=== PATIENT | female | born 1980 | race Two or more races ===

== ENCOUNTER 2016-09-14 05:28 | Day surgery (SDC) | payer OTHER ==
[~2016-09-14] VITALS: Ht 165.1 cm; Wt 66.7 kg
[2016-09-14] MEDS ORDERED: Ketamine 10 mg/mL 20 mL Inj ONE (05:29)
[2016-09-14] MEDS ORDERED: Propofol 10,000 mCg/mL 20 mL Inj ONE (05:29)
[2016-09-14] MEDS ORDERED: CeFAZolin Inj 2 gm / 50mL D5W IV ONE (05:48)
[2016-09-14] MEDS: Lactated Ringer's 1,000 ML IV SCH ×3 (05:53→09:57)
[2016-09-14 05:54] VITALS: BP 112/73; PULSE 66; O2SAT 99
[2016-09-14] MEDS ORDERED: CeFAZolin 2 Gm/50 mL D5W IV Premix IV ONE (06:00)
[2016-09-14] MEDS ORDERED: Bupivacaine-MPF 0.5% 30 mL Inj INFILTRATE ONE (07:30)
[2016-09-14] MEDS ORDERED: Lactated Ringer's 500 ML IV PRN (07:48)
[2016-09-14] MEDS ORDERED: Lactated Ringer's 1,000 ML IV SCH (07:48)
--- NOTE | 2016-09-14 07:48 | PCM.HPANE ---
Patient Data Date of Service: September 14, 2016 Surgeon Admitting Provider: Attending Provider:Irineo Vera MD Primary Care Physician:Rufino Webber MD Other Provider:Soumya Kennedy Anesthesia Reason for Visit Right Lower Leg Foreign Body Ht/WT & BMI Height (Feet): 5 Height (Inches): 5 Weight (Kilograms): 66.7 Body Mass Index 24.00 Allergies Coded Allergies: No Known Allergies (Unverified , 09/09/16) Past Anesthesia History Anesthesia History: Denies:: Abnormal Airway, Anesthesia Reactions, Difficult Intubation, Fam Anesthesia Reaction Diabetes History Hx Diabetes?: No MRSA MRSA: No Medications Hypertension Medication: No Home Meds Incl Beta Shruthi: No No Active Prescriptions or Reported Meds History History of ENT Problems?: No HEENT History: Denies:: Abnormal Airway Cataracts Difficult Intubation Dysphagia Glaucoma Hearing Problem Sinus Problem TMJ Denture Type: None Teeth Condition: Within Normal Limits Hx of Heart Problems?: No Cardiovascular History: Denies:: AICD Abdominal Aortic Aneurism Atrial Fibrillation Cardiac Surgery Chest Pain Congestive Heart Failure Heart Murmur Hypertension Irregular Heartbeat Pacemaker Peripheral Vascular Rheumatic Fever Thrombophlebitis Hx of Respiratory Problem?: No Respiratory History: Denies:: Asthma COPD Emphysema Hemoptysis Oxygen Administration Pneumonia Tuberculosis Use of C-PAP Machine Use of Inhalers / NEBS Hx Neurologic Problems?: No Neurological History: Denies:: Alzheimer's Disease CVA Dizziness Headaches Multiple Sclerosis Parkinson's Disease Seizures TIA Hx of GI Problems?: No Hx of Problems?: No Genitourinary History: Denies:: Kidney Stones Urinary Tract Infection HX of Peritoneal Dialysis: No Female Hx: Denies:: Currently (tubal ligation) Problems with Breasts? Skin History: Positive for:: History Skin Disorders? (open wound right lower leg ) Hx Musculoskeletal Problems?: Yes Musculoskeletal History: Positive for:: Musculoskeletal Trauma (right lower leg wound- metal foreign) Denies:: Fibromyalgia Osteoarthritis Rheumatoid Arthritis Systemic Lupus Hx of Psycho/Social Problems?: No Psycho Social History: Denies:: Anxiety Hx Depression Hx Surgeries?: Yes (tubal ) Hx Any Other Health Problems?: Yes Other History: Denies:: Cancer Thyroid Disease History Blood Transfusions: Positive for:: Accept Blood Products? Denies:: Blood Transfusions Hx Diabetes: No Hx Alcohol Use: NoHx Substance Use: NoHave You Smoked inLast 12 mo: No Stop/Bang Treated for Sleep Apnea?: No Do You Have a CPAP Machine?: No S-Snoring: Do You Snore Loudly: No T-Tired: feel tired, fatigued: No O-Obsered: Observed not breath: No P-Blood Pressure: treated: No B- Body Mass Index > 35 kg/m2: No A- Age over 50: No N- Neck Large Circumference: No G- Gender Male: No ANITHA Total Score: 0 ANITHA Risk Assessment: Low Risk, <3 Yes Risk Assessment Category Category 1A: Patient has history of documented sleep apnea, and HAS NOT received any narcotic, sedative or anesthesia administration during this stay. Category 1B: Patient has history of documented sleep apnea, and HAS received any narcotic , sedative or anesthesia administration during this stay Category 2: Patient has SUSPECTED Obstructive Sleep Apnea, and HAS received any narcotic , sedative or anesthesia administration during this stay. Category 3: Patient has SUSPECTED Obstructive Sleep Apnea and HAS NOT received narcotic, sedative or anesthesia administration during this stay. Category 4: Outpatient in Procedural Areas with known sleep apnea or who screen positive for High Risk via the STOP/BANG questionnaire. Exam Exam Vital Signs Vital Signs Date Time Temp Pulse Resp B/P Pulse Ox O2 Delivery O2 Flow Rate FiO2 09/14/16 05:54 36.4 66 112/73 99 Room Air General Appearance: Alert, Oriented X3 HEENT/AIRWAY: MP 1 Lungs: Clear to Auscultation Heart: Exam Unremarkable Meds/Labs/Diagnostics Admission Meds Current Medications Lactated Ringer's 1,000 ml @ 120 mls/hr Q8H20M IV Last administered on 07:32; Start 09/14/16 at 05:00; Stop 09/14/16 at 13:19 Cefazolin Sodium/ Dextrose/Premix (Ancef Inj/IV Premix) 50 ml @ 100 mls/hr PREOP ONCE IV Last administered on 09/14/16 07:31; Start 09/14/16 at 06:00; Stop 09/14/16 at 06:29; Status DC Bupivacaine HCl (Sensorcaine-MPF 0.5% Inj) 30 ml STK-MED ONCE INFILTRATE Last administered on 09/14/16 07:30; Start 09/14/16 at 07:30; Stop 09/14/16 at 07:31; Status DC Plan Impression Patient chart reviewed, patient interviewed and anesthestic plan with risks, benefits, and alternatives discussed, and informed consent obtained. ASA Physical Status: ASA1 Normal Healthy Anesthetic Plan: MAC Bene/Risks/Altern/Consents: Yes HP Complete Prior to Induction: Yes Yaw Jaime MD September 14, 2016 07:47
[2016-09-14] MEDS ORDERED: HYDROmorphone 1 mg/mL Inj IVPUSH PRN (07:50)
[2016-09-14] MEDS ORDERED: EPHEDrine Sulfate 50 mg/mL Inj IVPUSH PRN (07:50)
[2016-09-14] MEDS ORDERED: Ondansetron 2 mg/mL 2 mL Inj IVPUSH PRN (07:50)
[2016-09-14] MEDS ORDERED: fentaNYL-PF 50 mCg/mL 2 mL Inj IVPUSH PRN (07:50)
[2016-09-14] MEDS ORDERED: Phenylephrine 10,000 mCg/mL Inj IVPUSH PRN (07:50)
[2016-09-14] MEDS ORDERED: Dexamethasone 4 mg/mL Inj IVPUSH PRN (07:50)
[2016-09-14] MEDS ORDERED: MetoCLOpramide 5 mg/mL 2 mL Inj IVPUSH PRN (07:50)
[2016-09-14 08:02] VITALS: BP 106/63; PULSE 64; RESP 16; O2SAT 100
[2016-09-14] MEDS ORDERED: Lidocaine 1%-Epi 1:100,000 20 mL Inj NERVEBLOCK ONE (08:03)
--- NOTE | 2016-09-14 08:29 | OP ---
[address] [address] OPERATIVE REPORT PATIENT: ARIANE ONEILL : 1980 MR#: [id number] ADMIT: 09/14/2016 JOB ID: [id number] DATE OF SURGERY: 09/14/2016 SURGEON: Irineo Vera M.D. PREOPERATIVE DIAGNOSIS(ES): Retained foreign body, right pretibial area. POSTOPERATIVE DIAGNOSIS(ES): Retained foreign body, right pretibial area. PROCEDURE: 1. Two plane C-arm visualization of the metal and for guidance in foreign body removal. 2. Foreign body removal. INDICATIONS: This woman was mowing her lawn. Pretibial area with impaled with a high velocity piece of metal. Radiographs reveal a moderate 81 mm diameter, approximately 1 cm long piece of metal, either wire or a nail piece in the pretibial area. The patient requests removal. She understands the potential for infection, thromboembolic, neurovascular compromise. PROCEDURE: The patient was prepped and draped in the usual sterile fashion. Following this, the previous incisional area and eschar was excised sharply and a clamp was used to enter through this tract. Some seromatous type material was identified as the tract was dilated. Two plane C-arm was then utilized to visualize the implant. The clamp mouth was opened under direct C-arm visualization allowing the end of the metal component to be guided into the jaws of the clamp, which with gentle removal of the implant confirming no other structures were tethered in the clamp. The piece was removed easily. There was no subsequent bleeding encountered. The wound was thoroughly irrigated. The area had been injected with lidocaine and Marcaine. Closure with a single stitch with 4-0 nylon. The patient returned to the recovery room in stable condition after a sterile dressing had been applied.
[2016-09-14 08:30] VITALS: BP 108/75; PULSE 67; RESP 16; O2SAT 100
--- NOTE | 2016-09-14 11:36 | PCM.ANEP1 ---
Post Anesthesia Phase 1 PACU Phase 1 Assessment Date of Service: September 14, 2016 Vital Signs Vital Signs Date Time Temp Pulse Resp B/P Pulse Ox O2 Delivery O2 Flow Rate FiO2 09/14/16 08:30 67 16 108/75 100 Room Air 09/14/16 08:02 36.2 64 16 106/63 100 Room Air 09/14/16 05:54 36.4 66 112/73 99 Room Air Anesthetic Administered: MAC Level of Alertness: Awake, talking Pain: No Nausea or Vomiting: No Oxygen Delivery: Room Air Lungs: Clear to Auscultation Complications: No Follow up Care: No Yaw Jaime MD September 14, 2016 11:36
== END 2016-09-14 23:59 | disposition home or self-care (01) ==
LOC: SAS 05:28
PROVIDERS: ATTEND Orthopaedic Surgery
DX: S81.841A Puncture wound with foreign body, right lower leg, initial encounter (principal); M79.604 Pain in right leg; W45.8XXA Other foreign body or object entering through skin, initial encounter; W28.XXXA Contact with powered lawn mower, initial encounter; Y93.H2 Activity, gardening and landscaping; Y92.017 Garden or yard in single-family (private) house as the place of occurrence of the external cause; Y99.8 Other external cause status
CPT/HCPCS: 27372; J0690; J2250; J7120